=== PATIENT | female | born 1965 | race Caucasian/White ===

== ENCOUNTER → 2017-03-25 | Outpatient (CLI) | payer OTHER ==
[~2017-03-25] MED LIST: ATOR40TA78 PO; CLOT15CR6 TP; CO Q10 PO; ESTR0.6246 PO; LEVO150T5 PO
== END ==
LOC: STAR 15:40
PROVIDERS: ATTEND Obstetrics & Gynecology Female Pelvic Medicine and Reconstructive Surgery
DX: Z02.9 Encounter for administrative examinations, unspecified (principal)

== ENCOUNTER 2017-04-04 07:24 | Day surgery (SDC) | payer OTHER ==
[~2017-04-04] VITALS: Ht 165.1 cm; Wt 82.1 kg
[~2017-04-04 07:24] MED LIST changes: +BUPIVACAINE/PF 0.25% ONE; +EPINEPHRINE 1 MG/ML, 1ML ONE; +NEOMY/POLYMYXIN B GU IRR. 1 ML IRRIG ONE
[2017-04-04] MEDS ORDERED: LIDOCAINE 1%, 2ML ONE (07:42)
[2017-04-04] MEDS ORDERED: LACTATED RINGERS 1,000 ML IV SCH (07:49)
[2017-04-04] MEDS ORDERED: ROCURONIUM 10 MG/ML,10ML ONE (08:01)
[2017-04-04] MEDS ORDERED: CEFAZOLIN 1,000 MG ONE (08:01)
[2017-04-04] MEDS ORDERED: DEXAMETHASONE 4 MG/ML, 1ML ONE (08:01)
[2017-04-04] MEDS ORDERED: ONDANSETRON 2MG/ML, 2ML ONE ×2 (08:01→11:22)
[2017-04-04] MEDS ORDERED: PROPOFOL 10 MG/ML, 50ML ONE (08:01)
[2017-04-04] MEDS ORDERED: MIDAZOLAM 1 MG/ML, 2ML ONE (08:25)
[2017-04-04] MEDS ORDERED: FENTANYL PF 100 MCG/2ML ONE (08:25)
[2017-04-04] MEDS ORDERED: METOPROLOL 1 MG/ML, 5ML ONE (08:28)
[2017-04-04] MEDS ORDERED: PROPOFOL 10 MG/ML, 20ML ONE (08:51)
[2017-04-04] MEDS ORDERED: GLYCOPYRROLATE 0.4 MG/2 ML, 2ML ONE (08:51)
[2017-04-04] MEDS ORDERED: NEOSTIGMINE 1 MG/ML, 10ML ONE (08:51)
[2017-04-04] MEDS ORDERED: NEOMY/POLYMYXIN B GU IRR. 1 ML IRRIG ONE (08:56)
[2017-04-04] MEDS ORDERED: BUPIVACAINE/PF-EPI 0.25% 1:200K INFIL ONE (08:57)
[2017-04-04] MEDS ORDERED: MORPHINE SULFATE 4 MG/ML, 1ML ONE ×2 (09:41→09:46)
[2017-04-04] MEDS ORDERED: BUPIVACAINE/PF 0.25% ONE (09:59)
[2017-04-04] MEDS ORDERED: ACETAMINOPHEN 325 MG TABLET PO PRN ×2 (10:00→11:30)
[2017-04-04] MEDS ORDERED: ALBUTEROL SULFATE 2.5 MG/3 ML NPPB PRN (10:00)
[2017-04-04] MEDS ORDERED: METOPROLOL 1 MG/ML, 5ML IV PRN (10:00)
[2017-04-04] MEDS ORDERED: hydrALAzine 20 MG/ML, 1ML IV PRN (10:00)
[2017-04-04] MEDS ORDERED: FENTANYL PF 100 MCG/2ML IV PRN (10:00)
[2017-04-04] MEDS ORDERED: OXYcodone 5 MG/5 ML ORAL.SOL UDC PO PRN (10:00)
[2017-04-04] MEDS ORDERED: LORazepam 2 MG/ML, 1ML IVPush PRN (10:00)
[2017-04-04] MEDS ORDERED: PROMETHAZINE 12.5 MG SUPP PR PRN (10:00)
[2017-04-04] MEDS ORDERED: ACETAMINOPHEN 650 MG/20.3 ML UDC ONE (10:07)
[2017-04-04] MEDS ORDERED: HYDROmorphone 2 MG/ML, 1ML ONE (10:07)
[2017-04-04] MEDS ORDERED: ACETAMINOPHEN 325 MG TABLET ONE (10:08)
[2017-04-04] MEDS ORDERED: OXYcodone 5 MG/5 ML ORAL.SOL UDC ONE (10:08)
[2017-04-04] MEDS: HYDROmorphone 1 MG/ML, 1ML IV PRN ×4 (10:14→10:42)
[2017-04-04] MEDS ORDERED: ZOLPIDEM 5MG TABLET PO PRN (11:30)
[2017-04-04] MEDS ORDERED: HYDROcodone/APAP 5/325 TABLET PO PRN (11:30)
[2017-04-04] MEDS ORDERED: ACETAMINOPHEN 650 MG SUPP PR PRN (11:30)
[2017-04-04] MEDS ORDERED: OXYcodone/APAP 5/325MG TABLET PO PRN (11:30)
[2017-04-04] MEDS ORDERED: ONDANSETRON 2MG/ML, 2ML IVPush PRN (11:30)
[2017-04-04] MEDS ORDERED: HYDROmorphone 2 MG/ML, 1ML IVPush PRN (11:30)
[2017-04-04] MEDS ORDERED: PROMETHAZINE 25 MG SUPP PR ONE (12:46)
[2017-04-04] MEDS ORDERED: SIMETHICONE 80 MG CHEW TAB PO SCH (16:00)
[2017-04-04] MEDS ORDERED: IBUPROFEN 600 MG TABLET PO SCH (16:00)
[2017-04-04] MEDS ORDERED: DOCUSATE 100 MG CAPSULE PO SCH (21:00)
== END 2017-04-04 14:10 ==
LOC: OUT 07:24
PROVIDERS: ATTEND Obstetrics & Gynecology Female Pelvic Medicine and Reconstructive Surgery
DX: N39.46 Mixed incontinence (principal); N81.4 Uterovaginal prolapse, unspecified; N94.10 Unspecified dyspareunia; N83.202 Unspecified ovarian cyst, left side; N83.201 Unspecified ovarian cyst, right side; Z98.890 Other specified postprocedural states; E03.9 Hypothyroidism, unspecified
CPT/HCPCS: 57265; 57288; 58552; 88307; C1771; J0171; J0690; J1100; J1170; J2250; J2405; J2704; J2710; J3010; J3490; J7120